=== PATIENT | male | born 1935 | race Caucasian/White ===

== ENCOUNTER → 2017-06-01 | Outpatient (CLI) | payer MEDICARE ==
[2017-06-01 08:51] LABS: Blood Urea Nitrogen 17 mg/dL (9-20); Non-African American GFR(MDRD) >60 (>60 ml/min/1.73 sqM)
--- NOTE | 2017-06-01 12:02 | CT ---
EXAMINATION TYPE: CT ChestAbdPelvis w con DATE OF EXAM: 06/01/2017 COMPARISON: NONE HISTORY: Prostate CA CT DLP: 406.8 mGycm Automated exposure control for dose reduction was used. CONTRAST: CT scan of the chest, abdomen and pelvis is performed with Oral Contrast and with IV Contrast, patien t injected with 100 mL of Omnipaque 300. FINDINGS: LUNGS: 12 there is a nodular density present within the axial image 41 right middle lobe peripherally measuring 3 mm. Variant tracheal bronchus present on the right. No pleural effusion. MEDIASTINUM: Coronary artery calcifications are present. There is no pericardial effusion. AORTA: Ascending aorta measures 4.1 cm. There is no evident dissection. OTHER: There may be a small hiatal hernia. LIVER/GB: Scattered calcifications are present. Gallbladder is not distended. PANCREAS: No significant abnormality is seen. SPLEEN: Scattered calcifications are present compatible with old granulomatous disease. ADRENALS: No significant abnormality is seen. KIDNEYS: No significant abnormality is seen. REPRODUCTIVE ORGANS: Prostate is enlarged. There are metallic seeds present. BOWEL: [place] of the mesentery is present within the pelvis which is likely due to volvulus, there is no apparent bowel obstruction however. Left inguinal hernia containing loops of small bowel are pr esent and has developed in the interval. FREE AIR: No Free Air visible. ASCITES: None seen. RETROPERITONEAL ADENOPATHY: No retroperitoneal adenopathy is seen. LYMPH NODES: No greater than 1 cm abdominal or pelvic lymph nodes are appreciated. URINARY BLADDER: Bladder wall is thickened. There is an inferior impression on the urinary bladder d ue to enlarged prostate.. PELVIC ADENOPATHY: None visualized. OSSEOUS STRUCTURES: Some ill-defined sclerotic foci are present within the pelvis, multiple ribs and sternum which were not seen on prior exam. Degenerative disc changes, scoliotic curvature of the lum bar spine again noted. IMPRESSION: Cannot exclude bony metastatic disease. Swirling of mesentery compatible with volvulus wi th left inguinal hernia, consider surgical consult. Old granulomatous disease. Indeterminate pulmona ry nodule, follow-up. A Yellow message has been communicated to Rajwinder Skinner MD via the [employer] Critical Result system on 06/01/2017 12:00 PM, Message ID [id number].
--- NOTE | 2017-06-01 13:52 | NM ---
EXAMINATION TYPE: NM bone scan whole body DATE OF EXAM: 06/01/2017 COMPARISON: 11/03/[address] scan dated 06/01/2017. HISTORY: Pain and history of prostate cancer. Delayed whole-body scanning was performed following the injection of 27.1 mCi Tc 99m MDP. Images acq uired 4.5 hours post injection. Bilateral oblique views of the thoracic and lumbar spine submitted. FINDINGS: There is abnormal uptake involving the sternum and bilateral rib cage as noted by previous CT scan. [place] metastasis in the differential. Abnormal uptake is seen throughout the thoracic and lumbar spine and there is evidence of a scoliosis . Abnormal uptake involving the feet and shoulders most likely is arthritic. Abnormal uptake involving the sacrum and medial iliac bone greater on the right is nonspecific. Howev er, does appear to correspond to faint areas of sclerosis which also would be suspicious for early me tastases. IMPRESSION: Abnormal uptake throughout the thoracic and lumbar vertebral column corresponds to severe degenerativ e disc disease by CT scan. However, there also appeared to be areas of scattered sclerosis involving the vertebral bodies on the CT scan which corresponds with the findings on bone scan. Early superimpo sed metastases in the differential diagnosis. As noted by recent CT scan abnormal uptake in the rib cage corresponds to the CT scan abnormalities. Early metastasis in the differential diagnosis with areas of sclerosis seen within the ribs by CT sca n corresponding to the abnormal uptake. Finding involving the vertebral column, rib cage, sternum and pelvis are new from the bone scan of 20 .
== END | disposition home or self-care (01) ==
LOC: RADCTMAIN 08:07
PROVIDERS: ATTEND Internal Medicine Hematology & Oncology
DX: R93.5 Abnormal findings on diagnostic imaging of other abdominal regions, including retroperitoneum (principal); R93.8 Abnormal findings on diagnostic imaging of other specified body structures; C61 Malignant neoplasm of prostate
CPT/HCPCS: 82565; 84520; 71260; 74177; 36415; 78306; A9503; Q9967

== ENCOUNTER → 2017-09-06 | Outpatient (CLI) | payer MEDICARE ==
[2017-09-06 12:32] LABS: ALT 35 U/L (21-72); AST 24 U/L (17-59); Alkaline Phosphatase 102 U/L (38-126); Anion Gap 9 mmol/L; Blood Urea Nitrogen 27 mg/dL (9-20); Calcium 9.2 mg/dL (8.4-10.2); Carbon Dioxide 22 mmol/L (22-30); Chloride 108 mmol/L (98-107); Glucose 92 mg/dL (74-99); Non-African American GFR(MDRD) >60 (>60 ml/min/1.73 sqM); Potassium 4.9 mmol/L (3.5-5.1); Sodium 139 mmol/L (137-145); Total Bilirubin 0.9 mg/dL (0.2-1.3); Total Protein 6.4 g/dL (6.3-8.2)
[2017-09-06 12:36] LABS: Anisocytosis Slight; Basophils % (A) 1 %; CHCM 31.3; Eosinophils % (A) 1 %; HCT 31.7 % (39.0-53.0); HDW 2.56; HGB 10.2 gm/dL (13.0-17.5); Hypochromasia Slight; Luc # (Auto) 0.05; Luc % (Auto) 3; Lymphocytes # (A) 0.4 k/uL (1.0-4.8); Lymphocytes % (A) 24 %; MCH 31.2 pg (25.0-35.0); MCHC 32.3 g/dL (31.0-37.0); MCV 96.7 fL (80.0-100.0); Macrocytosis Slight; Mean Platelet Volume 7.7; Monocytes # (A) 0.2 k/uL (0-1.0); Monocytes % (A) 14 %; Neutrophils # (A) 0.9 k/uL (1.3-7.7); Neutrophils % (A) 58 %; RBC 3.28 m/uL (4.30-5.90); RDW 17.8 % (11.5-15.5); WBC 1.6 k/uL (3.8-10.6); WBC (Perox) 1.56
[2017-09-06 13:43] LABS: Prostate Specific Antigen >1000.00 ng/mL (0.00-4.00)
== END | disposition home or self-care (01) ==
LOC: LABWHC1 11:43
PROVIDERS: ATTEND Radiology Radiation Oncology
DX: C79.51 Secondary malignant neoplasm of bone (principal); Z92.3 Personal history of irradiation; C61 Malignant neoplasm of prostate
CPT/HCPCS: 36415; 80053; 84153; 85025; 99213